=== PATIENT | male | born 1985 | race Caucasian/White ===

== ENCOUNTER → 2023-03-22 | Outpatient (CLI) | payer OTHER ==
[2023-03-22 15:04] LABS: Basophils # (A) 0.05 X 10*3/uL (0.00-0.10); Basophils % (A) 0.6 %; Eosinophils # (A) 0.02 X 10*3/uL (0.04-0.35); Eosinophils % (A) 0.2 %; HCT 41.8 % (39.6-50.0); HGB 13.1 g/dL (13.0-17.0); Immature Grans, Automated 1.4 %; Lymphocytes # (A) 2.34 X 10*3/uL (0.90-5.00); Lymphocytes % (A) 26.1 %; MCH 27.8 pg (27.0-32.0); MCHC 31.3 g/dL (32.0-37.0); MCV 88.7 fL (80.0-97.0); Mean Platelet Volume 10.7 fL (9.5-12.2); Monocytes # (A) 0.73 X 10*3/uL (0.20-1.00); Monocytes % (A) 8.1 %; NRBC Per 100 WBC 0 /100 WBCS (0.0-0.0); Neutrophils % (A) 63.6 %; Platelet Count 241 X 10*3/uL (140-440); RBC 4.71 X 10*6/uL (4.40-5.60); RDW 14.8 % (11.5-14.5); WBC 8.97 X 10*3/uL (4.50-10.00)
[2023-03-22 15:43] LABS: African American GFR (CKD) 127.8 (60.0-200.0); Albumin 4.5 g/dL (3.8-4.9); Albumin/Globulin Ratio 2.37 (1.60-3.17); Anion Gap 11.6 mmol/L (10.00-18.00); BUN/Creat Ratio 22.11 Ratio (12.00-20.00); Blood Urea Nitrogen 19.9 mg/dL (9.0-27.0); Calcium 9.4 mg/dL (8.7-10.3); Carbon Dioxide 24.4 mmol/L (20.0-27.5); Globulin 1.9 g/dL (1.6-3.3); Non-African American GFR(CKD) 110.3 (60.0-200.0); Potassium 3.9 mmol/L (3.5-5.5); Protein, Total 6.3 g/dL (6.2-8.2); Total Bilirubin 0.2 mg/dL (0.30-1.20); Total Protein 6.4 g/dL (6.2-8.2)
[2023-03-22 15:59] LABS: Hepatitis A Antibody IgM Nonreactive (Nonreactive); Hepatitis B Core IgM Nonreactive (Nonreactive); Hepatitis B Surface Antigen Nonreactive (Nonreactive); Hepatitis C IgG Antibody Nonreactive (Nonreactive)
[2023-03-23 19:20] LABS: Albumin 4.31 g/dL (3.80-4.90); Gamma Globulin 0.45 g/dL (0.70-1.50)
== END | disposition home or self-care (01) ==
LOC: LABWHC1 08:42
PROVIDERS: ATTEND Internal Medicine
DX: Z01.89 Encounter for other specified special examinations (principal); Z11.59 Encounter for screening for other viral diseases; G35 Multiple sclerosis
CPT/HCPCS: 36415; 80053; 80074; 84165; 85025; 86480; 86704; 86787

== ENCOUNTER → 2023-04-20 | Outpatient (CLI) | payer OTHER ==
--- NOTE | 2023-04-22 12:17 | MR ---
EXAMINATION TYPE: MR brain/cspine wo/w DATE OF EXAM: 04/20/2023 5:14 PM CLINICAL INDICATION:Male, 37 years old with history of G35 MS; Checkup on MS COMPARISON: 12/18/2022 TECHNIQUE: Multiplanar, multisequence images of the brain and brainstem is performed. Multi planar, multi sequence imaging was performed utilizing: T1-weighted, T2-weighted, and turbo inv ersion recovery imaging of the cervical spine. MR IV Contrast: 9.5 cc Gadavist FINDINGS: Redemonstration of scattered lesions in the white matter are seen throughout the brain. New white mat ter changes, examples of the largest include left frontal lobe centrum semiovale white matter change measuring 12 mm series 602 image 25, 6 mm left frontal lobe alberts radiata image 22, and left shayla me asuring 4 mm image 22. There is at least one enlarging lesion within the right cerebellar peduncle me asuring 13 x 11 mm, previously 11 x 5 mm. No evidence of restricted diffusion in today's exam. There is some T2 shine through present on diffus ion-weighted imaging. There is some enhancement peripherally of a lesion within the left occipital lo be series 1601 image 66, series 1603 image 34. The ventricular system, basal cisterns appear unremarkable. Intracranial arterial flow voids are main tained. Midline structures show no abnormality. The susceptibility weighted images do not reveal any evidence for micro-hemorrhage. The bone marrow signal is within normal limits. Paranasal sinuses and mastoid air cells: No significant paranasal sinus disease. Visualized orbits: Orbital contents are intact. C-SPINE: Alignment: The cervical vertebral bodies have preserved heights. Alignment is within normal limits [facility] patient positioning. Bones: Bone signal is within normal limits. Cord: Areas of abnormal cord signal seen on prior * At the level of C2 is stable and/or decreased in size previously 5 x 4 x 2 mm now measuring at selma st 3 x 3 mm and not visualized on sagittal imaging due to slice selection. No abnormal postcontrast e nhancement. * At the level of C3 is less conspicuous on today's exam measuring at least 3 x 2 mm, previously 5 x 4 x 6 mm no abnormal postcontrast enhancement. * At the level of the superior endplate of C4 not well visualized, previously 3 x 3 mm. No abnormal postcontrast enhancement. Discs: Intervertebral disc signal is maintained. C2-C3: No significant disc pathology. The spinal canal is patent. No neural foraminal stenosis. C3-C4: No significant disc pathology. The spinal canal is patent. No neural foraminal stenosis. C4-C5: No significant disc pathology. The spinal canal is patent. Bilateral facet and uncovertebral joint arthropathy are present with mild bilateral neural foraminal stenosis. C5-C6: No significant disc pathology. The spinal canal is patent. Bilateral facet and uncovertebral joint arthropathy are present with mild bilateral neural foraminal stenosis. C6-C7: No significant disc pathology. The spinal canal is patent. No neural foraminal stenosis C7-T1: No significant disc pathology. The spinal canal is patent. No neural foraminal stenosis. Other: None. IMPRESSION: 1. There is at least one lesion in the left occipital lobe which demonstrates enhancement suggesting active demyelination, the remainder of the lesions are relatively stable with a couple of new white matter lesions and at least one white matter lesion that has which increased in size. 2. Overall the areas of abnormal cord signal are less conspicuous at C2, C3 and C4 levels. No eviden ce for postcontrast enhancement in the cervical spinal cord on today's exam.
== END | disposition home or self-care (01) ==
LOC: RADMRIMAIN 15:48
PROVIDERS: ATTEND Internal Medicine
DX: G35 Multiple sclerosis (principal); G93.89 Other specified disorders of brain
CPT/HCPCS: 70553; 72156; A9585

== ENCOUNTER → 2023-09-27 | Outpatient (CLI) | payer OTHER ==
[~2023-09-27] MED LIST: SODIUM CHLORIDE 0.9% 500 ML 500 ML in EMPTY BAG 1 BAG IV PRN; methylPREDNISolone SOD SUCCIN 1,000 MG in SODIUM CHLORIDE 0.9% 250 ML IVPB NR
[2023-09-27 13:03] VITALS: BP 128/74; PULSE 90; RESP 18; TEMP 98.3
== END ==
LOC: PROCWHC3 12:19
PROVIDERS: ATTEND Internal Medicine
DX: G35 Multiple sclerosis (principal)
CPT/HCPCS: 96365; J2930

== ENCOUNTER 2024-08-17 12:28 | Emergency (ER) | payer OTHER ==
[2024-08-17 12:45] VITALS: BP 117/66; PULSE 66; RESP 18; TEMP 97.5
--- NOTE | 2024-08-17 13:16 | ED ---
General Adult HPI - General Chief complaint: Eye Problems Stated complaint: R eye issue Time Seen by Provider: 08/17/24 12:55 Source: patient, RN notes reviewed, old records reviewed Mode of arrival: ambulatory Limitations: no limitations - History of Present Illness Initial comments: Patient is a 39-year-old male who presents emergency department complaining of right eye foreign body. Patient was working on a car 2 days ago when he began having right eye irritation. Denies any pain with movement of the eye. Denies any change in visual acuity. Wears glasses but not contacts. Currently does not have his glasses with him. States he feels like there is a foreign body in his eye and he can see it when he looks in the mirror. Presents for further evaluation. Not up-to-date on tetanus. No allergies to antibiotics. No other acute complaints at this time. - Related Data Previous Rx's Medication Instructions Recorded Pantoprazole Sodium [Protonix] 40 mg PO DAILY #30 tab 12/25/22 Ofloxacin 0.3% Ophth Soln [Ocuflox 2 drops RIGHT EYE Q6HR #10 ml 08/17/24 Ophth Soln] Allergies Allergy/AdvReac Type Severity Reaction Status Date / Time No Known Allergies Allergy Verified 09/27/23 12:58 Review of Systems ROS Statement: Those systems with pertinent positive or pertinent negative responses have been documented in the HPI. Review of Systems: CONST: Denies fever EYES: Endorses right eye irritation ENT: Denies nasal congestion C/V: Denies Chest pain RESP: Denies shortness of breath GI: Denies abdominal pain : Denies dysuria SKIN: Denies rash. MSK: Denies joint pain. NEURO: Denies headache ROS Other: All systems not noted in ROS Statement are negative. Past Medical History Past Medical History: No Reported History Additional Past Medical History / Comment(s): Multiple Sclerosis History of Any Multi-Drug Resistant Organisms: None Reported Past Surgical History: No Surgical Hx Reported Additional Past Surgical History / Comment(s): nasal surgery for broken nose. Additional Past Anesthesia/Blood Transfusion Reaction / Comment(s): has a hard time waking up from anesthesia. Past Psychological History: No Psychological Hx Reported Smoking Status: Former smoker General Exam - General Exam Comments Initial Comments: General: Appears in no acute distress. HEAD: Normal with no signs of head trauma. EYES: PERRLA, EOMI, conjunctiva normal, no discharge. Patient does appear to have a foreign body located to the anterior aspect of the cornea. Patient does not have his glasses. States his vision is at his baseline. Visual acuity with both eyes is 20/50 and with each eye individually is 20/70. States this is typical for him. No pain with extraocular eye movement. No edema around the right eye socket. ENT: Hearing grossly intact RESPIRATORY: No respiratory distress C/V: Regular rate and rhythm ABD: Nondistended EXT: No obvious deformity SKIN: No rashes or lesions observed on exposed skin. NEURO: Alert and oriented x 4. Limitations: no limitations Course Vital Signs 08/17/24 12:42 Temperature 97.5 F L Pulse Rate 66 Respiratory 18 Rate Blood Pressure 117/66 O2 Sat by Pulse 100 Oximetry Medical Decision Making - Medical Decision Making Was pt. sent in by a medical professional or institution ([facility], [employer], urgent care, hospital, or halfway...) When possible be specific @ -No Did you speak to anyone other than the patient for history (EMS, parent, family, police, friend...)? What history was obtained from this source @ -No Did you review nursing and triage notes (agree or disagree)? Why? @ -I reviewed and agree with nursing and triage notes Were old charts reviewed (outside hosp., previous admission, EMS record, old EKG, old radiological studies, urgent care reports/EKG's, halfway records)? Report findings @ -No old charts were reviewed Differential Diagnosis (chest pain, altered mental status, abdominal pain women, abdominal pain men, vaginal bleeding, weakness, fever, dyspnea, syncope, headache, dizziness, GI bleed, back pain, seizure, CVA, palpatations, mental health, musculoskeletal)? @ -Eye foreign body, corneal abrasion, corneal ulceration. This list is not all inclusive. EKG interpreted by me (3pts min.). @ -None done X-rays interpreted by me (1pt min.). @ -None done CT interpreted by me (1pt min.). @ -None done U/S interpreted by me (1pt. min.). @ -None done What testing was considered but not performed or refused? (CT, X-rays, U/S, labs)? Why? @ -None What meds were considered but not given or refused? Why? @ -None Did you discuss the management of the patient with other professionals (professionals i.e. , PA, [employer], lab, RT, psych nurse, social insurance specialist, parts fabricator, teacher, sports development officer, bottle caser)? Give summary @ -No Was smoking cessation discussed for >3mins.? @ -No Was critical care preformed (if so, how long)? @ -No Were there social determinants of health that impacted care today? How? (Homelessness, low income, unemployed, alcoholism, drug addiction, transportation, low edu. Level, literacy, decrease access to med. care, fci, rehab)? @ -No Was there de-escalation of care discussed even if they declined (Discuss DNR or withdrawal of care, Hospice)? DNR status @ -No What co-morbidities impacted this encounter? (DM, HTN, Smoking, COPD, CAD, Cancer, CVA, ARF, Chemo, Hep., AIDS, mental health diagnosis, sleep apnea, morbid obesity)? @ -None Was patient admitted / discharged? Hospital course, mention meds given and route, prescriptions, significant lab abnormalities, going to OR and other pertinent info. @ -Patient presents for right eye foreign body. Appears to be a piece of metal located in the anterior cornea. Fluorescein staining as well as removal of the metal shard will be completed after tetracaine drops applied. He is not up-to-date on tetanus and therefore will be updated. Patient will receive antibiotic eyedrops. Eye exam overall otherwise is within acceptable limits. Patient was in agreement with this plan. I was able to partially remove the patient's metal fragment in his eye however was unable to obtain all of it. Patient was having a difficult time tolerating procedure. Discussed with the patient we both agreed to abort at this time. Has been present for multiple days already and awaiting 1 more day will not cause issue. He will be started on antibiotic eyedrops. Instructions follow-up with ophthalmology tomorrow. He was in agreement this plan. Patient will be discharged home with ophthalmology follow-up as well as prescription for ofloxacin eyedrops. Strict return precautions discussed. I will provide the patient with a prescription for ofloxacin eyedrops. I instructed the patient to follow up with their PCP in the next 1-3 days. I provided contact information for follow up with ophthalmology. I explained that the patient should return to the emergency department if they experience any worsening symptoms. Strict return precautions were discussed with the patient. The patient expressed understanding of these instructions. I answered all questions that the patient had. The patient was discharged home in good condition with their prescriptions and follow up information. Undiagnosed new problem with uncertain prognosis? @ -No Drug Therapy requiring intensive monitoring for toxicity (Heparin, Nitro, Insul in, Cardizem)? @ -No Were any procedures done? @ -Eye foreign body removal Diagnosis/symptom? @ -Foreign body intraocular Acute, or Chronic, or Acute on Chronic? @ -Acute Uncomplicated (without systemic symptoms) or Complicated (systemic symptoms)? @ -Uncomplicated Side effects of treatment? @ -None Exacerbation, Progression, or Severe Exacerbation] @ -No Poses a threat to life or bodily function? @ -Unlikely at this time. Disposition Clinical Impression: Intraocular foreign body of right eye Disposition: HOME SELF-CARE Condition: Good Instructions (If sedation given, give patient instructions): Eye Foreign Body (ED) Additional Instructions: obtain artificial tears for lubrication of the right eye. Follow up with opthomology tomorrow 08/18/24 for further evaluation of metal foreign body in your eye. We were able to remove a portion of it but you need close follow up. Continue with ofloxacin eye antibiotics every 6 hours, 2 drop in right eye. return if worsening symptoms. Prescriptions: Ofloxacin 0.3% Ophth Soln [Ocuflox Ophth Soln] 2 drops RIGHT EYE Q6HR #10 ml Is patient prescribed a controlled substance at d/c from ED?: No Referrals: Abraham Arteaga DO [Primary Care Provider] - 1-2 days Cody Robles MD [STAFF PHYSICIAN] - 1-2 days Junior Harrison MD [STAFF PHYSICIAN] - 1-2 days Diony Pacheco MD [STAFF PHYSICIAN] - 1-2 days Time of Disposition: 14:17
[2024-08-17] MEDS: TETRACAINE 0.5% OPHTH (PF) DROPS 4 ML BTL RIGHT EYE STA (13:35)
[2024-08-17] MEDS: FLUORESCEIN STRIPS 1 MG STRIP RIGHT EYE ONE (13:35)
[2024-08-17] MEDS: OFLOXACIN 0.3% OPHTH DROPS 5 ML BOTTLE RIGHT EYE STA (14:44)
[2024-08-17] MEDS: DIPH,PERTUS(ACELL)TETVAC-LF 0.5 ML VIAL IM ONE (14:45)
== END 2024-08-17 14:47 | disposition home or self-care (01) ==
LOC: EC 12:28
CPT/HCPCS: 90471; 90715; 99283

== ENCOUNTER → 2024-11-07 | Outpatient (CLI) | payer OTHER ==
[2024-11-07 15:10] LABS: Basophils # (A) 0.02 X 10*3/uL (0.00-0.10); Basophils % (A) 0.5 %; Eosinophils # (A) 0.02 X 10*3/uL (0.04-0.35); Eosinophils % (A) 0.5 %; HCT 47.9 % (39.6-50.0); HGB 15.6 g/dL (13.0-17.0); Lymphocytes % (A) 20.4 %; MCHC 32.6 g/dL (32.0-37.0); Mean Platelet Volume 10.9 FL (9.5-12.2); Monocytes # (A) 0.46 X 10*3/uL (0.20-1.00); Monocytes % (A) 10.4 %; NRBC Per 100 WBC 0 X 10*3/uL (0.00-0.01); Neutrophils # (A) 2.99 X 10*3/uL (1.80-7.70); Neutrophils % (A) 67.7 %; Platelet Count 246 X 10*3/uL (140-440); RBC 5.77 X 10*6/uL (4.40-5.60); RDW 12.3 % (11.5-14.5); WBC 4.41 X 10*3/uL (4.50-10.00)
[2024-11-07 15:32] LABS: Hepatitis A Antibody IgM Nonreactive (Nonreactive); Hepatitis B Core IgM Nonreactive (Nonreactive); Hepatitis B Surface Antigen Nonreactive (Nonreactive); Hepatitis C IgG Antibody Nonreactive (Nonreactive)
[2024-11-07 15:45] LABS: Blood Urea Nitrogen 19.5 mg/dL (9.0-27.0); Carbon Dioxide 25.7 mmol/L (21.6-31.8); Chloride 106 mmol/L (96-109); Glucose 98 mg/dL (70-110); Potassium 4.2 mmol/L (3.5-5.5); Sodium 144 mmol/L (135-145)
[2024-11-07 15:46] LABS: ALT 22 U/L (10-49); AST 21 U/L (14-35); Albumin 4.8 g/dL (3.8-4.9); Albumin/Globulin Ratio 2.18 Ratio (1.60-3.17); Alkaline Phosphatase 50 U/L (41-126); Calcium 9.7 mg/dL (8.7-10.3); Globulin 2.2 g/dL (1.6-3.3); Total Bilirubin 0.8 mg/dL (0.3-1.2)
== END | disposition home or self-care (01) ==
LOC: LABWHC1 09:35
PROVIDERS: ATTEND Internal Medicine
DX: G35 Multiple sclerosis (principal)
CPT/HCPCS: 36415; 80053; 80074; 84165; 85025; 86480; 86704

== ENCOUNTER → 2025-04-15 | Outpatient (CLI) | payer OTHER ==
[2025-04-15 16:16] LABS: Protein, Total 6.9 g/dL (6.2-8.2); Total Protein 6.9 g/dL (6.2-8.2)
[2025-04-15 16:26] LABS: Basophils # (A) 0.04 X 10*3/uL (0.00-0.10); Basophils % (A) 0.4 %; Eosinophils # (A) 0.03 X 10*3/uL (0.04-0.35); Eosinophils % (A) 0.3 %; HCT 47.7 % (39.6-50.0); HGB 15.9 g/dL (13.0-17.0); Lymphocytes # (A) 1.28 X 10*3/uL (0.90-5.00); Lymphocytes % (A) 12.9 %; MCH 27.6 pg (27.0-32.0); MCHC 33.3 g/dL (32.0-37.0); MCV 82.8 FL (80.0-97.0); Mean Platelet Volume 11.5 FL (9.5-12.2); Monocytes # (A) 0.85 X 10*3/uL (0.20-1.00); Monocytes % (A) 8.6 %; NRBC Per 100 WBC 0 X 10*3/uL (0.00-0.01); Neutrophils # (A) 7.65 X 10*3/uL (1.80-7.70); Neutrophils % (A) 77.2 %; Platelet Count 244 X 10*3/uL (140-440); RBC 5.76 X 10*6/uL (4.40-5.60); RDW 12.5 % (11.5-14.5); WBC 9.91 X 10*3/uL (4.50-10.00)
[2025-04-15 16:31] LABS: Hepatitis A Antibody IgM Nonreactive (Nonreactive); Hepatitis B Core IgM Nonreactive (Nonreactive); Hepatitis B Surface Antigen Nonreactive (Nonreactive); Hepatitis C IgG Antibody Nonreactive (Nonreactive)
[2025-04-15 16:44] LABS: ALT 41 U/L (10-49); AST 27 U/L (14-35); Albumin 4.7 g/dL (3.8-4.9); Albumin/Globulin Ratio 2.14 Ratio (1.60-3.17); Alkaline Phosphatase 77 U/L (41-126); Blood Urea Nitrogen 19.1 mg/dL (9.0-27.0); Calcium 9.6 mg/dL (8.7-10.3); Carbon Dioxide 25.8 mmol/L (21.6-31.8); Chloride 106 mmol/L (96-109); Globulin 2.2 g/dL (1.6-3.3); Glucose 109 mg/dL (70-110); Potassium 4.7 mmol/L (3.5-5.5); Sodium 144 mmol/L (135-145); Total Bilirubin 0.4 mg/dL (0.3-1.2)
== END | disposition home or self-care (01) ==
LOC: LABWHC1 10:22
PROVIDERS: ATTEND Internal Medicine
DX: G35 Multiple sclerosis (principal)
CPT/HCPCS: 36415; 80053; 80074; 84165; 85025; 86480; 86704